=== PATIENT | male | born 1980 | race Caucasian/White ===

== ENCOUNTER 2025-02-28 08:54 | Emergency (ER) | payer MEDICAID ==
[~2025-02-28] VITALS: Ht 157.5 cm; Wt 76.0 kg
[2025-02-28 08:59] VITALS: O2SAT 99
[2025-02-28] MEDS ORDERED: ACYC200C31 MT (09:13)
[2025-02-28 09:26] VITALS: BP 125/84; PULSE 88; RESP 20; TEMP 37; O2SAT 99
[2025-03-02 04:07] LABS: HSV TYPE 2 SPECIFIC AB IGG Non Reactive (Non Reactive)
[2025-03-02 06:12] LABS: CHLAMYDIA TRACHOMATIS NAA Negative (Negative); NEISSERIA GONORRHOEAE NAA Negative (Negative)
== END 2025-02-28 09:27 | disposition home or self-care (01) ==
LOC: ER 08:54
DX: R21 Rash and other nonspecific skin eruption (principal); Z11.3 Encounter for screening for infections with a predominantly sexual mode of transmission; Z79.899 Other long term (current) drug therapy
CPT/HCPCS: 86695; 86696; 87491; 87529; 87591; 99283

== ENCOUNTER 2025-03-03 21:44 | Emergency (ER) | payer MEDICAID ==
[~2025-03-03] VITALS: Ht 157.5 cm; Wt 75.2 kg
[~2025-03-03 21:44] MED LIST: ACYC200C31 MT
[2025-03-03 21:45] VITALS: O2SAT 99
[2025-03-03 21:48] VITALS: BP 140/102; PULSE 97; RESP 16; TEMP 37.1; O2SAT 100
[2025-03-04] MEDS ORDERED: PENICILLIN G BENZATHINE 2,400,000 UNITS/4ML SYR IM ONE
[2025-03-04] MEDS: PENICILLIN G BENZATHINE 1,200,000 UNITS/2ML SYR IM NR (00:58)
== END 2025-03-04 01:30 | disposition home or self-care (01) ==
LOC: ER 21:44
DX: N48.9 Disorder of penis, unspecified (principal); Z79.899 Other long term (current) drug therapy
CPT/HCPCS: 99283; 86592; 96372; J0561